=== PATIENT | male | born 1955 | race African-American/Black ===

== ENCOUNTER 2022-10-17 05:30 | Day surgery (SDC) | payer MEDICARE, MEDICAID ==
[~2022-10-17] VITALS: Ht 175.3 cm; Wt 56.8 kg
[~2022-10-17 05:30] MED LIST: AMIO200T PO; ASPI81TA39 PO; ATOR20TA PO; BENA5TAB48 PO; BENZ1TAB70 PO; CARV3 PO; CLOP75TA60 PO; ISOS10TA2 PO; QUET100T PO; RISP1TAB48 PO
[2022-10-17] MEDS ORDERED: FentaNYL CITRATE PF 100 MCG/2 ML VIAL IVP ONE (05:31)
[2022-10-17] MEDS ORDERED: MIDAZOLAM HCL 2 MG/2 ML VIAL IVP ONE (05:31)
[2022-10-17] MEDS ORDERED: 0.9% SODIUM CHLORIDE 10 ML VIAL IVP ONE (05:31)
[2022-10-17] MEDS ORDERED: CeFAZolin SODIUM 1 GM VIAL IVP ONE (05:31)
[2022-10-17] MEDS ORDERED: SODIUM CHLORIDE 0.9% 1,000 ML IV ONE (06:00)
[2022-10-17] MEDS ORDERED: SODIUM CHLORIDE 0.9% 1,000 ML ONE ×2 (06:19→07:50)
[2022-10-17] MEDS ORDERED: AMIO200T68 PO (06:31)
[2022-10-17 06:36] LABS: BASOPHILS % (AUTO) 0.7 % (0.0-2.0); EOSINOPHILS % (AUTO) 1.4 % (1.0-6.0); HEMATOCRIT 39.3 % (41-53); MEAN CORPUSCULAR HEMOGLOBIN 26.6 pg (26.0-34.0); MEAN CORPUSCULAR VOLUME 81 fL (80-100); MONOCYTES # (AUTO) 0.6 K/uL (0.1-1.0); MONOCYTES % (AUTO) 8.6 % (2.0-9.0); NEUTROPHILS % (AUTO) 59.3 % (40.0-70.0); PLATELET COUNT (AUTO) 182 K/uL (150-450); RED BLOOD CELL COUNT(AUTO) 4.87 MIL/uL (4.50-5.90); RED CELL DISTRIBUTION WIDTH 16.9 % (11.5-14.5)
[2022-10-17] MEDS ORDERED: TRIH2TAB3 PO ×2 (06:38→06:40)
[2022-10-17] MEDS ORDERED: FERR325T27 PO (06:40)
[2022-10-17] MEDS ORDERED: CHOL25TA4 PO (06:41)
[2022-10-17] MEDS ORDERED: ISOS60TA77 PO (06:42)
[2022-10-17 06:46] LABS: ANION GAP 8 mmol/L (8-16); CALCIUM, TOTAL 8.6 mg/dL (8.8-10.5); CARBON DIOXIDE 27 mmol/L (22-29); CHLORIDE 104 mmol/L (98-107); CREATININE 1.36 mg/dL (0.60-1.30); GLOMERULAR FILTR. RATE CALC > 60 mL/min (>60); GLUCOSE,RANDOM 99 mg/dL (70-110); POTASSIUM 3.7 mmol/L (3.5-5.1); SODIUM SERUM 139 mmol/L (136-145)
[2022-10-17 06:52] LABS: ALANINE AMINOTRANSFERASE 10 U/L (12-78); ALBUMIN 2.8 g/dL (3.4-5.0); ALKALINE PHOSPHATASE 77 U/L (46-116); ASPARTATE AMINOTRANSFERASE 12 U/L (15-37); BILIRUBIN,TOTAL 0.3 mg/dL (0.1-1.0); TOTAL PROTEIN, SERUM 7.3 g/dL (6.4-8.2)
[2022-10-17] MEDS ORDERED: CeFAZolin SODIUM 1 GM VIAL ONE (06:52)
[2022-10-17] MEDS ORDERED: DiphenhydrAMINE HCL 50 MG/ML VIAL ONE (06:52)
[2022-10-17] MEDS ORDERED: IOHEXOL 300 MG/ML 50 ML VIAL ONE (06:53)
[2022-10-17] MEDS ORDERED: LIDOCAINE/PF 1% 30 ML VIAL ONE (06:53)
[2022-10-17] MEDS ORDERED: SODIUM BICARBONATE 50 MEQ/50 ML VIAL ONE (06:53)
[2022-10-17 06:58] LABS: INR 1.1 (0.9-1.1)
[2022-10-17 08:07] VITALS: BP 133/67; PULSE 51
[2022-10-17] MEDS ORDERED: CeFAZolin SODIUM 1 GM VIAL IRRIG ONE (08:15)
[2022-10-17] MEDS ORDERED: IOHEXOL 300 MG/ML 50 ML VIAL IVP ONE (08:15)
[2022-10-17] MEDS ORDERED: LIDOCAINE 1% 30 ML/SOD BICARB 8.4% 4 ML SQ ONE ×3 (08:15→08:30)
[2022-10-17 09:07] VITALS: BP 135/66; PULSE 60
== END 2022-10-17 11:30 | disposition home or self-care (01) ==
LOC: SDS 05:30
PROVIDERS: ATTEND Internal Medicine Clinical Cardiac Electrophysiology
DX: Z45.02 Encounter for adjustment and management of automatic implantable cardiac defibrillator (principal); I50.9 Heart failure, unspecified; Z79.01 Long term (current) use of anticoagulants; Z79.899 Other long term (current) drug therapy; Z82.49 Family history of ischemic heart disease and other diseases of the circulatory system
CPT/HCPCS: 33263; 80053; 85025; 85610; 85730; 36415; 88300; 93005; C1721; J0690; J3010; J3490 ×2; J2250; J7030; 33240; J1200; Q9967

== ENCOUNTER 2023-02-28 11:40 | Inpatient (IN) | payer MEDICARE, MEDICAID ==
[~2023-02-28] VITALS: Ht 175.3 cm; Wt 64.0 kg
[~2023-02-28 11:40] MED LIST changes: -AMIO200T PO; +AMIO200T68 PO; -ATOR20TA PO; -BENA5TAB48 PO; -BENZ1TAB70 PO; -CARV3 PO; +CHOL25TA4 PO; -CLOP75TA60 PO; +FERR325T27 PO; -ISOS10TA2 PO; +ISOS60TA77 PO; +TRIH2TAB3 PO
[2023-02-28 12:37] LABS: BASOPHILS % (AUTO) 0.2 % (0.0-2.0); EOSINOPHILS % (AUTO) 0 % (1.0-6.0); HEMATOCRIT 39.1 % (41-53); HEMOGLOBIN 13.2 g/dL (13.5-17.5); LYMPHOCYTES # (AUTO) 1.3 K/uL (1.0-4.8); LYMPHOCYTES % (AUTO) 12.4 % (22.0-44.0); MEAN CORPUSCULAR HGB CONC 33.8 G/dL (31.0-37.0); MEAN CORPUSCULAR VOLUME 83 fL (80-100); MONOCYTES % (AUTO) 9.8 % (2.0-9.0); NEUTROPHILS # (AUTO) 8.2 K/uL (1.8-7.7); NEUTROPHILS % (AUTO) 77.6 % (40.0-70.0); PLATELET COUNT (AUTO) 230 K/uL (150-450); RED BLOOD CELL COUNT(AUTO) 4.72 MIL/uL (4.50-5.90); RED CELL DISTRIBUTION WIDTH 16.6 % (11.5-14.5); WHITE BLOOD COUNT (AUTO) 10.6 K/uL (4.5-11.0)
[2023-02-28 12:49] LABS: ANION GAP 12 mmol/L (8-16); CALCIUM, TOTAL 9.3 mg/dL (8.8-10.5); CARBON DIOXIDE 26 mmol/L (22-29); CHLORIDE 97 mmol/L (98-107); CREATININE 1.11 mg/dL (0.60-1.30); GLOMERULAR FILTR. RATE CALC > 60 mL/min (>60); GLUCOSE,RANDOM 83 mg/dL (70-110); POTASSIUM 3.8 mmol/L (3.5-5.1); SODIUM SERUM 135 mmol/L (136-145); UREA NITROGEN, BLOOD 27 mg/dL (7-18)
[2023-02-28 12:55] LABS: ALANINE AMINOTRANSFERASE 17 U/L (12-78); ALBUMIN 3.2 g/dL (3.4-5.0); ALKALINE PHOSPHATASE 79 U/L (46-116); ASPARTATE AMINOTRANSFERASE 24 U/L (15-37); BILIRUBIN,TOTAL 0.7 mg/dL (0.1-1.0); TOTAL PROTEIN, SERUM 8.7 g/dL (6.4-8.2)
[2023-02-28 13:10] LABS: ALCOHOL, BLOOD (SERUM) < 3 mg/dL (0-10)
[2023-02-28] MEDS ORDERED: HALOPERIDOL LACTATE 5 MG/ML VIAL IM ONE (14:45)
[2023-02-28] MEDS ORDERED: DiphenhydrAMINE HCL 50 MG/ML VIAL IM ONE (14:45)
[2023-02-28] MEDS ORDERED: LORazepam 2 MG/ML VIAL IM ONE (14:45)
[2023-02-28 15:07] LABS: TROPONIN I-HIGH SENSITIVITY 22 ng/L (<76)
[2023-02-28 19:12] LABS: COVID AG,FIA SOURCE NASAL SWAB
[2023-02-28 19:35] LABS: SARS-COV2 (COVID) ANTIGEN,FIA Negative (Negative)
[2023-03-01] MEDS: AMIODARONE HCL 200 MG TABLET PO SCH (10:45)
[2023-03-01 12:11] VITALS: BP 122/83; PULSE 85; RESP 18; TEMP 97.3; O2SAT 96
[2023-03-01] MEDS: CARVEDILOL 3.125 MG TABLET PO SCH (12:15)
[2023-03-01] MEDS: ASPIRIN 81 MG CHEWABLE TABLET PO SCH (12:17)
[2023-03-01] MEDS ORDERED: ACETAMINOPHEN 325 MG TABLET PO PRN (15:15)
[2023-03-01] MEDS ORDERED: PETROLATUM,WHITE 28 GM JELLY TP PRN (15:15)
[2023-03-01] MEDS ORDERED: OMEPRAZOLE 20 MG CAPSULE PO PRN (15:15)
[2023-03-01] MEDS ORDERED: DOCUSATE SODIUM 100 MG CAPSULE PO PRN (15:15)
[2023-03-01] MEDS ORDERED: MAG HYDROX/ALUMINUM HYD/SIMETH ES 30 ML SUSPENSION UDCUP PO PRN (15:15)
[2023-03-01] MEDS ORDERED: ALBUTEROL SULFATE HFA 90 MCG/PUFF 8 GM INHALER IH PRN (15:15)
[2023-03-01] MEDS ORDERED: MAGNESIUM HYDROXIDE SUSPENSION 30 ML UDCUP PO PRN (15:15)
[2023-03-01] MEDS ORDERED: BENZOCAINE/MENTHOL LOZENGE PO PRN (15:15)
[2023-03-01] MEDS ORDERED: ONDANSETRON HCL 4 MG TABLET PO PRN (15:15)
[2023-03-01] MEDS ORDERED: BACITRACIN 28 GM OINTMENT TP PRN (15:15)
[2023-03-01] MEDS ORDERED: IBUPROFEN 600 MG TABLET PO PRN (15:15)
[2023-03-01] MEDS ORDERED: CloNIDine HCL 0.1 MG TABLET PO PRN (15:15)
[2023-03-01] MEDS ORDERED: LOPERAMIDE HCL 2 MG CAPSULE PO PRN (15:15)
[2023-03-01] MEDS ORDERED: ASPI-1522 PO (15:19)
[2023-03-01] MEDS ORDERED: CARV3.1231 PO (15:19)
[2023-03-01] MEDS ORDERED: QUET100T34 PO (15:20)
[2023-03-01] MEDS ORDERED: RISP3TAB35 PO (15:20)
[2023-03-01] MEDS ORDERED: SACU1TAB PO (15:20)
[2023-03-01] MEDS ORDERED: RISP1TAB48 PO (15:21)
[2023-03-01] MEDS: SACUBITRIL/VALSARTAN 24-26 MG TABLET PO SCH (17:17)
[2023-03-01] MEDS: RisperiDONE 1 MG TABLET PO SCH (17:18)
[2023-03-01 21:00] VITALS: RESP 18
[2023-03-02] MEDS: ISOSORBIDE MONONITRATE 60 MG ER TABLET PO SCH (09:37)
[2023-03-02] MEDS: SACUBITRIL/VALSARTAN 24-26 MG TABLET PO SCH ×2 (09:37→16:51)
[2023-03-02] MEDS: AMIODARONE HCL 200 MG TABLET PO SCH (09:37)
[2023-03-02 09:39] VITALS: BP 112/54; PULSE 79; RESP 12; TEMP 97.7; O2SAT 99
[2023-03-02] MEDS: ASPIRIN 81 MG CHEWABLE TABLET PO SCH (09:39)
[2023-03-02] MEDS: CARVEDILOL 3.125 MG TABLET PO SCH (09:39)
[2023-03-02] MEDS: RisperiDONE 1 MG TABLET PO SCH ×2 (09:39→16:51)
[2023-03-02] MEDS: CHOLECALCIFEROL (VIT D3) 1,000 UNITS [25 MCG] TABLET PO SCH (09:39)
[2023-03-02 10:40] VITALS: BP 112/54; PULSE 79; RESP 12; TEMP 97.7; O2SAT 99
[2023-03-02 21:39] VITALS: BP 102/58; PULSE 88; RESP 17; TEMP 98.2; O2SAT 98
[2023-03-03] MEDS: CHOLECALCIFEROL (VIT D3) 1,000 UNITS [25 MCG] TABLET PO SCH (08:35)
[2023-03-03] MEDS: CARVEDILOL 3.125 MG TABLET PO SCH (08:35)
[2023-03-03] MEDS: LORazepam 2 MG TABLET PO PRN ×2 (08:36→17:12)
[2023-03-03] MEDS: RisperiDONE 1 MG TABLET PO SCH ×2 (08:36→17:12)
[2023-03-03] MEDS: SACUBITRIL/VALSARTAN 24-26 MG TABLET PO SCH ×2 (08:36→17:12)
[2023-03-03] MEDS: ISOSORBIDE MONONITRATE 60 MG ER TABLET PO SCH (08:36)
[2023-03-03] MEDS: ASPIRIN 81 MG CHEWABLE TABLET PO SCH (08:36)
[2023-03-03] MEDS: HALOPERIDOL 5 MG TABLET PO PRN (08:36)
[2023-03-03] MEDS: AMIODARONE HCL 200 MG TABLET PO SCH (08:36)
[2023-03-03 09:58] VITALS: BP 103/65; PULSE 83; RESP 18; TEMP 97.3; O2SAT 97
[2023-03-03] MEDS ORDERED: PNEUMOCOCCAL VACCINE POLYVALENT 0.5 ML SYRINGE [PPSV23] IM. ONE (18:30)
[2023-03-03] MEDS ORDERED: INFLUENZA VIRUS VACCINE QVS 2023-24 (6MO+)/PF 60 MCG/0.5 ML SYRINGE IM. ONE (18:30)
[2023-03-03 21:24] VITALS: BP 112/69; PULSE 76; RESP 16; TEMP 96.9; O2SAT 98
[2023-03-04 08:19] VITALS: BP 112/61; PULSE 75; RESP 20; TEMP 98.2; O2SAT 99
[2023-03-04] MEDS: RisperiDONE 1 MG TABLET PO SCH ×2 (08:25→17:05)
[2023-03-04] MEDS: ISOSORBIDE MONONITRATE 60 MG ER TABLET PO SCH (08:26)
[2023-03-04] MEDS: CARVEDILOL 3.125 MG TABLET PO SCH (08:26)
[2023-03-04] MEDS: SACUBITRIL/VALSARTAN 24-26 MG TABLET PO SCH ×2 (08:26→17:05)
[2023-03-04] MEDS: AMIODARONE HCL 200 MG TABLET PO SCH (08:26)
[2023-03-04] MEDS: ASPIRIN 81 MG CHEWABLE TABLET PO SCH (08:26)
[2023-03-04] MEDS: CHOLECALCIFEROL (VIT D3) 1,000 UNITS [25 MCG] TABLET PO SCH (08:41)
[2023-03-04 20:20] VITALS: BP 121/67; PULSE 80; RESP 18; TEMP 97.7; O2SAT 100
[2023-03-05] MEDS: RisperiDONE 1 MG TABLET PO SCH ×2 (08:08→17:19)
[2023-03-05] MEDS: AMIODARONE HCL 200 MG TABLET PO SCH (08:09)
[2023-03-05] MEDS: SACUBITRIL/VALSARTAN 24-26 MG TABLET PO SCH ×2 (08:09→17:19)
[2023-03-05] MEDS: ASPIRIN 81 MG CHEWABLE TABLET PO SCH (08:09)
[2023-03-05] MEDS: ISOSORBIDE MONONITRATE 60 MG ER TABLET PO SCH (08:09)
[2023-03-05] MEDS: CHOLECALCIFEROL (VIT D3) 1,000 UNITS [25 MCG] TABLET PO SCH (08:09)
[2023-03-05] MEDS: CARVEDILOL 3.125 MG TABLET PO SCH (08:09)
[2023-03-05 08:37] VITALS: BP 116/64; PULSE 79; RESP 17; TEMP 96.9; O2SAT 97
[2023-03-06 02:15] VITALS: BP 112/61; PULSE 83; RESP 18; TEMP 98; O2SAT 100
[2023-03-06 08:01] VITALS: BP 106/55; PULSE 68; RESP 15; TEMP 97.7; O2SAT 100
[2023-03-06] MEDS: ASPIRIN 81 MG CHEWABLE TABLET PO SCH (09:14)
[2023-03-06] MEDS: CARVEDILOL 3.125 MG TABLET PO SCH (09:14)
[2023-03-06] MEDS: RisperiDONE 1 MG TABLET PO SCH ×2 (09:14→16:00)
[2023-03-06] MEDS: CHOLECALCIFEROL (VIT D3) 1,000 UNITS [25 MCG] TABLET PO SCH (09:14)
[2023-03-06] MEDS: AMIODARONE HCL 200 MG TABLET PO SCH (09:15)
[2023-03-06] MEDS: SACUBITRIL/VALSARTAN 24-26 MG TABLET PO SCH ×2 (09:15→16:00)
[2023-03-06] MEDS: ISOSORBIDE MONONITRATE 60 MG ER TABLET PO SCH (09:17)
[2023-03-06 20:39] VITALS: BP 121/63; PULSE 90; RESP 18; TEMP 98.2; O2SAT 100
[2023-03-07 08:03] VITALS: BP 118/66; PULSE 86; RESP 18; TEMP 97; O2SAT 100
[2023-03-07] MEDS: RisperiDONE 1 MG TABLET PO SCH ×2 (08:04→17:05)
[2023-03-07] MEDS: CARVEDILOL 3.125 MG TABLET PO SCH (08:04)
[2023-03-07] MEDS: CHOLECALCIFEROL (VIT D3) 1,000 UNITS [25 MCG] TABLET PO SCH (08:04)
[2023-03-07] MEDS: SACUBITRIL/VALSARTAN 24-26 MG TABLET PO SCH ×2 (08:04→17:00)
[2023-03-07] MEDS: ASPIRIN 81 MG CHEWABLE TABLET PO SCH (08:04)
[2023-03-07] MEDS: ISOSORBIDE MONONITRATE 60 MG ER TABLET PO SCH (08:04)
[2023-03-07] MEDS: AMIODARONE HCL 200 MG TABLET PO SCH (08:05)
[2023-03-07 08:09] VITALS: BP 118/66; PULSE 75; RESP 17; TEMP 97; O2SAT 100
[2023-03-07 23:54] VITALS: RESP 16
[2023-03-08] MEDS: SACUBITRIL/VALSARTAN 24-26 MG TABLET PO SCH ×2 (08:05→17:05)
[2023-03-08] MEDS: CHOLECALCIFEROL (VIT D3) 1,000 UNITS [25 MCG] TABLET PO SCH (08:05)
[2023-03-08] MEDS: CARVEDILOL 3.125 MG TABLET PO SCH (08:05)
[2023-03-08] MEDS: ASPIRIN 81 MG CHEWABLE TABLET PO SCH (08:05)
[2023-03-08] MEDS: RisperiDONE 1 MG TABLET PO SCH ×2 (08:05→17:05)
[2023-03-08] MEDS: ISOSORBIDE MONONITRATE 60 MG ER TABLET PO SCH (08:05)
[2023-03-08] MEDS: AMIODARONE HCL 200 MG TABLET PO SCH (08:06)
[2023-03-08] MEDS: HALOPERIDOL 5 MG TABLET PO PRN (08:36)
[2023-03-08] MEDS: LORazepam 2 MG TABLET PO PRN (08:36)
[2023-03-08 08:47] VITALS: BP 128/68; PULSE 72; RESP 20; TEMP 98; O2SAT 98
[2023-03-08 21:15] VITALS: BP 120/62; PULSE 76; RESP 18; TEMP 97.5; O2SAT 96
[2023-03-09] MEDS: AMIODARONE HCL 200 MG TABLET PO SCH (08:28)
[2023-03-09] MEDS: RisperiDONE 1 MG TABLET PO SCH ×2 (08:28→17:15)
[2023-03-09] MEDS: CARVEDILOL 3.125 MG TABLET PO SCH (08:28)
[2023-03-09] MEDS: SACUBITRIL/VALSARTAN 24-26 MG TABLET PO SCH ×2 (08:28→17:15)
[2023-03-09] MEDS: CHOLECALCIFEROL (VIT D3) 1,000 UNITS [25 MCG] TABLET PO SCH (08:28)
[2023-03-09] MEDS: ISOSORBIDE MONONITRATE 60 MG ER TABLET PO SCH (08:28)
[2023-03-09] MEDS: ASPIRIN 81 MG CHEWABLE TABLET PO SCH (08:28)
[2023-03-09] MEDS: HALOPERIDOL 5 MG TABLET PO PRN (08:29)
[2023-03-09] MEDS: LORazepam 2 MG TABLET PO PRN (08:29)
[2023-03-09 08:39] VITALS: BP 145/90; PULSE 77; RESP 16; TEMP 98.2; O2SAT 100
[2023-03-09 21:41] VITALS: BP 130/81; PULSE 72; RESP 17; TEMP 98; O2SAT 98
[2023-03-10] MEDS: SACUBITRIL/VALSARTAN 24-26 MG TABLET PO SCH ×2 (08:05→17:14)
[2023-03-10] MEDS: ISOSORBIDE MONONITRATE 60 MG ER TABLET PO SCH (08:05)
[2023-03-10] MEDS: RisperiDONE 1 MG TABLET PO SCH ×2 (08:05→17:14)
[2023-03-10] MEDS: AMIODARONE HCL 200 MG TABLET PO SCH (08:05)
[2023-03-10] MEDS: CARVEDILOL 3.125 MG TABLET PO SCH (08:06)
[2023-03-10] MEDS: HALOPERIDOL 5 MG TABLET PO PRN (08:06)
[2023-03-10] MEDS: CHOLECALCIFEROL (VIT D3) 1,000 UNITS [25 MCG] TABLET PO SCH (08:06)
[2023-03-10] MEDS: ASPIRIN 81 MG CHEWABLE TABLET PO SCH (08:06)
[2023-03-10] MEDS: LORazepam 2 MG TABLET PO PRN ×2 (08:06→17:14)
[2023-03-10 09:20] VITALS: BP 107/60; PULSE 82; RESP 17; TEMP 97.5; O2SAT 95
[2023-03-10 22:50] VITALS: BP 115/60; PULSE 67; RESP 18; TEMP 97.7; O2SAT 96
[2023-03-11 08:27] VITALS: BP 100/53; PULSE 80; RESP 16; TEMP 97.3; O2SAT 97
[2023-03-11] MEDS: RisperiDONE 1 MG TABLET PO SCH ×2 (09:08→16:49)
[2023-03-11] MEDS: CARVEDILOL 3.125 MG TABLET PO SCH (09:10)
[2023-03-11] MEDS: CHOLECALCIFEROL (VIT D3) 1,000 UNITS [25 MCG] TABLET PO SCH (09:10)
[2023-03-11] MEDS: ASPIRIN 81 MG CHEWABLE TABLET PO SCH (09:10)
[2023-03-11] MEDS: AMIODARONE HCL 200 MG TABLET PO SCH (09:11)
[2023-03-11] MEDS: SACUBITRIL/VALSARTAN 24-26 MG TABLET PO SCH ×2 (09:11→16:50)
[2023-03-11] MEDS: ISOSORBIDE MONONITRATE 60 MG ER TABLET PO SCH (09:12)
[2023-03-11] MEDS: LORazepam 2 MG TABLET PO PRN (16:50)
[2023-03-11 20:17] VITALS: BP 117/75; PULSE 69; RESP 17; TEMP 98
[2023-03-12 08:27] VITALS: BP 126/70; PULSE 71; RESP 17; TEMP 98; O2SAT 97
[2023-03-12] MEDS: CHOLECALCIFEROL (VIT D3) 1,000 UNITS [25 MCG] TABLET PO SCH (08:34)
[2023-03-12] MEDS: LORazepam 2 MG TABLET PO PRN (08:34)
[2023-03-12] MEDS: HALOPERIDOL 5 MG TABLET PO PRN (08:34)
[2023-03-12] MEDS: RisperiDONE 1 MG TABLET PO SCH ×2 (08:34→17:32)
[2023-03-12] MEDS: ISOSORBIDE MONONITRATE 60 MG ER TABLET PO SCH (08:34)
[2023-03-12] MEDS: CARVEDILOL 3.125 MG TABLET PO SCH (08:34)
[2023-03-12] MEDS: SACUBITRIL/VALSARTAN 24-26 MG TABLET PO SCH ×2 (08:34→17:32)
[2023-03-12] MEDS: AMIODARONE HCL 200 MG TABLET PO SCH (08:34)
[2023-03-12] MEDS: ASPIRIN 81 MG CHEWABLE TABLET PO SCH (08:34)
[2023-03-12 21:16] VITALS: BP 110/64; PULSE 63; RESP 17; TEMP 97.5; O2SAT 97
[2023-03-13] MEDS: ASPIRIN 81 MG CHEWABLE TABLET PO SCH (08:25)
[2023-03-13] MEDS: SACUBITRIL/VALSARTAN 24-26 MG TABLET PO SCH ×2 (08:26→16:51)
[2023-03-13] MEDS: CHOLECALCIFEROL (VIT D3) 1,000 UNITS [25 MCG] TABLET PO SCH (08:26)
[2023-03-13] MEDS: RisperiDONE 1 MG TABLET PO SCH ×2 (08:26→16:51)
[2023-03-13] MEDS: CARVEDILOL 3.125 MG TABLET PO SCH (08:26)
[2023-03-13] MEDS: AMIODARONE HCL 200 MG TABLET PO SCH (08:26)
[2023-03-13] MEDS: ISOSORBIDE MONONITRATE 60 MG ER TABLET PO SCH (08:26)
[2023-03-13 08:34] VITALS: BP 108/75; PULSE 76; RESP 18; TEMP 98; O2SAT 95
[2023-03-13] MEDS ORDERED: NICOTINE POLACRILEX 4 MG LOZENGE PO PRN (11:30)
[2023-03-13 20:05] VITALS: BP 110/76; PULSE 79; RESP 17; TEMP 98.1; O2SAT 99
[2023-03-14 08:14] VITALS: BP 126/59; PULSE 64; RESP 17; TEMP 97.9; O2SAT 95
[2023-03-14 08:24] VITALS: BP 124/66; PULSE 68; RESP 17; O2SAT 97
[2023-03-14] MEDS: CHOLECALCIFEROL (VIT D3) 1,000 UNITS [25 MCG] TABLET PO SCH (08:24)
[2023-03-14] MEDS: CARVEDILOL 3.125 MG TABLET PO SCH (08:24)
[2023-03-14] MEDS: AMIODARONE HCL 200 MG TABLET PO SCH (08:24)
[2023-03-14] MEDS: RisperiDONE 1 MG TABLET PO SCH ×2 (08:24→16:08)
[2023-03-14] MEDS: ASPIRIN 81 MG CHEWABLE TABLET PO SCH (08:24)
[2023-03-14] MEDS: SACUBITRIL/VALSARTAN 24-26 MG TABLET PO SCH ×2 (08:24→16:08)
[2023-03-14] MEDS: ISOSORBIDE MONONITRATE 60 MG ER TABLET PO SCH (08:24)
[2023-03-14 16:05] VITALS: BP 111/60; PULSE 75; RESP 17; O2SAT 99
[2023-03-14 22:56] VITALS: BP 102/67; PULSE 66; RESP 17; TEMP 98.9; O2SAT 99
[2023-03-15 08:30] VITALS: BP 114/72; PULSE 69; RESP 18; TEMP 98.3; O2SAT 100
[2023-03-15] MEDS: RisperiDONE 1 MG TABLET PO SCH ×2 (08:50→16:30)
[2023-03-15] MEDS: SACUBITRIL/VALSARTAN 24-26 MG TABLET PO SCH ×2 (08:50→16:30)
[2023-03-15] MEDS: CHOLECALCIFEROL (VIT D3) 1,000 UNITS [25 MCG] TABLET PO SCH (08:51)
[2023-03-15] MEDS: ISOSORBIDE MONONITRATE 60 MG ER TABLET PO SCH (08:51)
[2023-03-15] MEDS: ASPIRIN 81 MG CHEWABLE TABLET PO SCH (08:51)
[2023-03-15] MEDS: CARVEDILOL 3.125 MG TABLET PO SCH (08:52)
[2023-03-15] MEDS: AMIODARONE HCL 200 MG TABLET PO SCH (08:52)
[2023-03-15 20:58] VITALS: BP 105/55; PULSE 69; RESP 17; TEMP 97.6; O2SAT 100
[2023-03-15] MEDS: ZOLPIDEM TARTRATE 10 MG TABLET PO PRN (22:51)
[2023-03-16 08:39] VITALS: BP 144/71; PULSE 90; RESP 18; TEMP 98; O2SAT 99
[2023-03-16] MEDS: CARVEDILOL 3.125 MG TABLET PO SCH (09:06)
[2023-03-16] MEDS: ISOSORBIDE MONONITRATE 60 MG ER TABLET PO SCH (09:06)
[2023-03-16] MEDS: ASPIRIN 81 MG CHEWABLE TABLET PO SCH (09:06)
[2023-03-16] MEDS: RisperiDONE 1 MG TABLET PO SCH ×2 (09:06→16:42)
[2023-03-16] MEDS: SACUBITRIL/VALSARTAN 24-26 MG TABLET PO SCH ×2 (09:06→16:42)
[2023-03-16] MEDS: AMIODARONE HCL 200 MG TABLET PO SCH (09:06)
[2023-03-16] MEDS: CHOLECALCIFEROL (VIT D3) 1,000 UNITS [25 MCG] TABLET PO SCH (09:07)
[2023-03-16 20:49] VITALS: BP 105/63; PULSE 65; RESP 17; TEMP 97.3; O2SAT 100
[2023-03-17 00:46] VITALS: BP 110/57; PULSE 71; RESP 17; TEMP 97.6
[2023-03-17] MEDS: ZOLPIDEM TARTRATE 10 MG TABLET PO PRN ×2 (00:46→23:31)
[2023-03-17 08:16] VITALS: BP 112/64; PULSE 68; RESP 16; TEMP 97.3; O2SAT 97
[2023-03-17] MEDS: CARVEDILOL 3.125 MG TABLET PO SCH (09:31)
[2023-03-17] MEDS: AMIODARONE HCL 200 MG TABLET PO SCH (09:31)
[2023-03-17] MEDS: SACUBITRIL/VALSARTAN 24-26 MG TABLET PO SCH ×2 (09:31→16:31)
[2023-03-17] MEDS: RisperiDONE 1 MG TABLET PO SCH ×2 (09:31→16:31)
[2023-03-17] MEDS: ISOSORBIDE MONONITRATE 60 MG ER TABLET PO SCH (09:31)
[2023-03-17] MEDS: CHOLECALCIFEROL (VIT D3) 1,000 UNITS [25 MCG] TABLET PO SCH (09:31)
[2023-03-17] MEDS: ASPIRIN 81 MG CHEWABLE TABLET PO SCH (09:31)
[2023-03-17 20:23] VITALS: BP 102/60; PULSE 68; RESP 16; TEMP 97.9; O2SAT 99
[2023-03-18 08:39] VITALS: BP 114/58; PULSE 65; RESP 17; TEMP 98; O2SAT 99
[2023-03-18] MEDS: CHOLECALCIFEROL (VIT D3) 1,000 UNITS [25 MCG] TABLET PO SCH (09:22)
[2023-03-18] MEDS: CARVEDILOL 3.125 MG TABLET PO SCH (09:22)
[2023-03-18] MEDS: RisperiDONE 1 MG TABLET PO SCH (09:22)
[2023-03-18] MEDS: ASPIRIN 81 MG CHEWABLE TABLET PO SCH (09:22)
[2023-03-18] MEDS: ISOSORBIDE MONONITRATE 60 MG ER TABLET PO SCH (09:23)
[2023-03-18] MEDS: SACUBITRIL/VALSARTAN 24-26 MG TABLET PO SCH (09:23)
[2023-03-18] MEDS: AMIODARONE HCL 200 MG TABLET PO SCH (09:23)
[2023-03-18] MEDS ORDERED: SACU1TAB PO (11:22)
[2023-03-18] MEDS ORDERED: CARV3 PO (11:22)
[2023-03-18] MEDS ORDERED: AMIO200 PO (11:22)
[2023-03-18] MEDS ORDERED: ASPI-1450 PO (11:22)
== END 2023-03-18 11:45 | disposition home or self-care (01) | DRG 750 ==
LOC: EMS 11:43 → B3A 19:04 → B2S 03-12 19:39
PROVIDERS: ADMIT Psychiatry & Neurology Psychiatry; ATTEND Psychiatry & Neurology Psychiatry
DX: F20.0 Paranoid schizophrenia (principal); I11.0 Hypertensive heart disease with heart failure; I50.9 Heart failure, unspecified; E11.9 Type 2 diabetes mellitus without complications; G47.00 Insomnia, unspecified; I25.10 Atherosclerotic heart disease of native coronary artery without angina pectoris; I25.5 Ischemic cardiomyopathy; F32.A Depression, unspecified; K21.9 Gastro-esophageal reflux disease without esophagitis; F17.200 Nicotine dependence, unspecified, uncomplicated; F41.9 Anxiety disorder, unspecified; Z20.822 Contact with and (suspected) exposure to COVID-19; K59.00 Constipation, unspecified; J44.9 Chronic obstructive pulmonary disease, unspecified; Z79.82 Long term (current) use of aspirin; Z79.899 Other long term (current) drug therapy; Z95.0 Presence of cardiac pacemaker; Z86.73 Personal history of transient ischemic attack (TIA), and cerebral infarction without residual deficits; I25.2 Old myocardial infarction
CPT/HCPCS: 80053; 84484; 85025; 99291; G0480; J1200; J1630; J2060; J3535; Q9967